=== PATIENT | male | born 1990 ===

== ENCOUNTER 2017-01-06 17:27 | Emergency (ER) | payer OTHER ==
[2017-01-06 18:05] VITALS: BP 154/97; PULSE 71; RESP 20; TEMP 98.4; O2SAT 98
[2017-01-06] MEDS ORDERED: Alum-Mag Hydrox-Simethicone Susp (30 mL) PO STA (18:57)
--- NOTE | 2017-01-06 19:11 | ED PDOC ---
HPI: Abdomen Time Seen by Provider: 01/06/17 18:33 Chief Complaint (Nursing): Abdominal Pain Chief Complaint (Provider): Spitting Up Blood History Per: Patient History/Exam Limitations: no limitations Onset/Duration Of Symptoms: Hrs (7.5 hours prior to arrival) Outside of [place] travel?: No Current Symptoms Are (Timing): Gone Now Location Of Pain/Discomfort: Epigastric Associated Symptoms: denies: Fever, Chills, Vomiting, Other (no hematochezia/ melena/lightheadedness) Additional Complaint(s): Shaun Pradhan is a 26 year old male, with no pertinent past medical history, who presents to the ED on 01/06/17 for evaluation after having "spit up blood" 3 times approximately 7.5 hours prior to arrival as he had been brushing his teeth, after which he had also experienced the sensation of something being stuck within his throat. Though patient denies both vomiting or having spit up any additional blood since these initial episodes, he does report the onset of some epigastric abdominal pain; prompting ED visit. Denies fever, chills, lightheadedness, hematochezia or melena as well as recent NSAID or alcohol use. PMD: none Past Medical History Reviewed: Historical Data, Nursing Documentation, Vital Signs Vital Signs: Last Vital Signs Temp 98.4 F 01/06/17 18:02 Pulse 71 01/06/17 18:02 Resp 20 01/06/17 18:02 BP 154/97 H 01/06/17 18:02 Pulse Ox 98 01/06/17 21:18 - Medical History PMH: No Chronic Diseases - Surgical History Other surgeries: bone biopsy of sternum (for evaluation of viral illness had >6 years ago) - Family History Family History: States: Diabetes - Social History Current smoker - smoking cessation education provided: No (quit 6 month ago) Alcohol: Occasional (wine 1-2x/week w/dinner) Drugs: Denies - Home Medications Home Medications: Ambulatory Orders Medication Instructions Recorded Omeprazole Magnesium [Prilosec Otc] 20 mg PO DAILY #30 tcp 01/06/17 Ondansetron [Zofran] 4 mg PO Q8H PRN #10 tab 01/06/17 - Allergies Allergies/Adverse Reactions: Allergies Allergy/AdvReac Type Severity Reaction Status Date / Time No Known Allergies Allergy Verified 01/06/17 18:00 Review of Systems Constitutional: Negative for: Fever, Chills Cardiovascular: Negative for: Light Headedness Respiratory: Positive for: Hemoptysis (x3 episodes) Gastrointestinal: Positive for: Abdominal Pain (epigastric). Negative for: Vomiting, Melena, Hematochezia Physical Exam - Reviewed Nursing Documentation Reviewed: Yes Vital Signs Reviewed: Yes - Physical Exam Appears: Positive for: Non-toxic, No Acute Distress Head Exam: Positive for: ATRAUMATIC, NORMOCEPHALIC Skin: Positive for: Normal Color, Warm, Dry. Negative for: Pallor Eye Exam: Positive for: Normal appearance, PERRL Cardiovascular/Chest: Positive for: Regular Rate, Rhythm. Negative for: Murmur Respiratory: Positive for: Normal Breath Sounds. Negative for: Respiratory Distress Gastrointestinal/Abdominal: Positive for: Soft, Tenderness (minimal epigastric; (-) Callahan/McBurney). Negative for: Mass, Distended, Guarding, Rebound Back: Positive for: Normal Inspection Neurologic/Psych: Positive for: Alert, Oriented - Laboratory Results Result Diagrams: 01/06/17 19:39 01/06/17 19:39 - ECG O2 Sat by Pulse Oximetry: 98 (RA) Pulse Ox Interpretation: Normal (R) Medical Decision Making Medical Decision Makin:33 Initial Impression: hemoptysis Differential diagnoses include but are not limited to gingival bleeding, pharyngitis, esophagitis, gastritis, coagulopathy Initial Plan: * Blood Type/Screen * Labs * Lipase * PTT * PT * Lidocaine 2% Viscous 10ml PO * Aluminum Hydroxide 30ml PO * Pepcid 40mg PO * Reevaluation * Labs unremarkable. (Pt's coag initially elevated. But repeated and normal so likely lab error.) DC home f/u [facility] Scribe Attestation: Documented by Brianna Mendes, acting as a scribe for Blanka Vázquez MD. Provider Scribe Attestation: All medical record entries made by the Scribe were at my direction and personally dictated by me. I have reviewed the chart and agree that the record accurately reflects my personal performance of the history, physical exam, medical decision making, and the department course for this patient. I have also personally directed, reviewed, and agree with the discharge instructions and disposition. Disposition - Clinical Impression Clinical Impression: Hemoptysis - Disposition Referrals: [facility] [Outside] - 01/07/17 Disposition: Routine/Home Disposition Time: 22:00 Condition: STABLE Prescriptions: Omeprazole Magnesium [Prilosec Otc] 20 mg PO DAILY #30 tcp Ondansetron [Zofran] 4 mg PO Q8H PRN #10 tab PRN Reason: Nausea/Vomiting Instructions: Hemoptysis (ED) Forms: [facility] ED School/Work Excuse Print Language: CUBAN
[2017-01-06] MEDS ORDERED: Alum-Mag Hydrox-Simethicone Susp (30 mL) ONE (19:30)
[2017-01-06 19:49] LABS: BASO % 0.5 % (0.0-2.0); EOS # 0.2 K/uL (0.0-0.7); EOS % 3.2 % (0.0-4.0); HEMATOCRIT 44.2 % (35.0-51.0); LYMPH # 2.4 K/uL (1.0-4.3); LYMPH % 35.7 % (20.0-40.0); MEAN CELL VOLUME 85.2 fl (80.0-94.0); MEAN CORPUSCULAR HEMOGLOBIN 28.7 pg (27.0-31.0); MEAN CORPUSCULAR HGB CONC 33.6 g/dL (33.0-37.0); MEAN PLATELET VOLUME 9.1 fl (7.2-11.7); MONO # 0.5 K/uL (0.0-0.8); MONO % 6.8 % (0.0-10.0); NEUT # 3.7 K/uL (1.8-7.0); NEUT % 53.8 % (50.0-75.0); NRBC % 0.1 % (0.0-0.0); RED CELL DISTRIBUTION WIDTH 13.9 % (11.5-14.5); WHITE BLOOD COUNT 6.8 K/uL (4.8-10.8)
[2017-01-06 19:55] LABS: ALB/GLOB RATIO 1.2 (1.0-2.1); ALKALINE PHOSPHATASE 72 U/L (38-126); ALT/SGPT 54 U/L (21-72); AST/SGOT 39 U/L (17-59); BILIRUBIN,TOTAL 0.7 mg/dl (0.2-1.3); BLOOD UREA NITROGEN 15 mg/dl (9-20); CALCIUM 9.5 mg/dL (8.4-10.2); CARBON DIOXIDE 25 mmol/L (22-30); CHLORIDE 102 mmol/L (98-107); GFR AFRICAN-AMERICAN > 60; GLUCOSE,RANDOM 89 mg/dL (75-110); LIPASE 57 U/L (23-300); POTASSIUM 3.7 MMOL/L (3.6-5.0); SODIUM 138 mmol/l (132-148); TOTAL PROTEIN 8.1 G/DL (6.3-8.2)
[2017-01-06 20:17] LABS: PARTIAL THROMBOPLASTIN TIME 53.2 SECONDS (23.3-32.5)
[2017-01-06 21:06] LABS: PARTIAL THROMBOPLASTIN TIME 27.7 SECONDS (23.3-32.5)
== END 2017-01-06 22:30 | disposition home or self-care (01) ==
LOC: H.ER 17:27
DX: R04.2 Hemoptysis (principal); R10.13 Epigastric pain